=== PATIENT | female | born 1965 | race African-American/Black ===

== ENCOUNTER 2017-02-04 11:14 | Inpatient (IN) | payer MEDICAID ==
[~2017-02-04] VITALS: Ht 172.7 cm; Wt 129.5 kg
[~2017-02-04 11:14] MED LIST: ALBU18; ASPI-231 PO; GABA-339 PO; HYDR12.56 PO; LOR05T GT; METF-312 PO; METO-169; RABE20TA5 PO
[2017-02-04] MEDS ORDERED: SODIUM CHLORIDE 0.9% 1,000 ML IV ONE (11:27)
[2017-02-04] MEDS ORDERED: ALBUTEROL SULF 2.5 MG/0.5ML(0.5%) NEB SOLN HHN ONE (11:30)
[2017-02-04] MEDS ORDERED: IPRATROPIUM BROM 0.5 MG/2.5ML INH SOL HHN ONE (11:30)
[2017-02-04] MEDS ORDERED: methylPREDNISolone SOD SUCC 125 MG/2 ML VL IV ONE (11:30)
[2017-02-04 12:05] LABS: Basophils # (auto) 0.1 uL; Eosinophils # (auto) 0.4 uL; Lymphocytes # (auto) 1.7 uL; Monocytes # (auto) 0.5 uL
[2017-02-04 12:16] LABS: Eosinophils % (auto) 7.7 % (0.0-7.0); Hematocrit 43.3 % (36.0-46.0); Lymphocytes % (auto) 29.5 % (10.0-50.0); Mean Corpuscular Hemoglobin 28.3 pg (28.0-32.0); Mean Corpuscular Hgb Conc. 32.3 g/dL (32.0-36.0); Mean Corpuscular Volume 87.5 fL (80.0-100.0); Mean Platelet Volume 9.5 fL (7.4-10.4); Monocytes % (auto) 8.6 % (0.0-12.0); Neutrophils % (auto) 53.2 % (37.0-80.0); Platelet Count (auto) 335 10^3/uL (140-450); Red Cell Distribution Width 16.3 % (11.6-16.0); White Blood Cell 5.7 10^3/uL (4.4-10.8)
[2017-02-04 12:33] LABS: B-Type Natriuretic Peptide 11.07 pg/mL (0-100)
[2017-02-04 12:34] LABS: Albumin 3.1 g/dL (3.4-5.0); Alkaline Phosphatase 100 U/L (45-117); Anion Gap 9 (5-15); Aspartate Aminotransferase 8 U/L (15-37); BUN/Creatinine Ratio 15.1; Bilirubin, Total 0.1 mg/dL (0.2-1.0); Blood Urea Nitrogen 13 mg/dL (7-18); Calcium 8.5 mg/dL (8.5-10.1); Carbon Dioxide 29 mmol/L (21-32); Chloride 102 mmol/L (98-107); GFR African American 89 mL/min; GFR Non-African American 74 mL/min; Glucose 155 mg/dL (74-106); Magnesium 2.1 mg/dL (1.6-2.6); Potassium 4.2 mmol/L (3.5-5.1); Sodium 140 mmol/L (136-145); Temperature: 23.9 C (20.0-25.0); Total Protein 6.9 g/dL (6.4-8.2)
[2017-02-04] MEDS ORDERED: GLIMPERIDE (13:45)
[2017-02-04] MEDS ORDERED: PRAV20TA3 PO (13:45)
[2017-02-04] MEDS ORDERED: PRO625LQ PO (13:45)
[2017-02-04] MEDS ORDERED: ENAL5TAB92 PO (13:45)
[2017-02-04] MEDS ORDERED: OMEP20CA5 PO (13:45)
[2017-02-04] MEDS ORDERED: TOPI50TA53 PO (13:45)
[2017-02-04] MEDS ORDERED: CETI10TA93 PO (13:45)
[2017-02-04] MEDS ORDERED: BUPR300T28 PO (13:45)
[2017-02-04] MEDS ORDERED: PAR20T PO (13:45)
[2017-02-04] MEDS ORDERED: DIV250ER PO (13:45)
[2017-02-04] MEDS ORDERED: MIRT30TA3 PO (13:45)
[2017-02-04] MEDS ORDERED: TEMA30CA PO (13:45)
[2017-02-04 14:22] LABS: Urine Bilirubin Negative (Negative); Urine Blood Negative /uL (Negative); Urine Color Yellow (Yellow); Urine Glucose Normal (Normal); Urine Ketone Negative (Negative); Urine Nitrite Negative (Negative); Urine RBC <1 /hpf (0 - 4); Urine Squamous Epithelial Cell FEW /hpf (<5); Urine Urobilinogen Normal (Negative)
[2017-02-04] MEDS ORDERED: cefTRIAXone 1GM/50ML D5W 50 ML IV ONE (15:00)
[2017-02-04] MEDS ORDERED: TEMAZEPAM 15 MG CAP PO PRN (15:15)
[2017-02-04] MEDS ORDERED: LORazepam 2MG/ML-1ML VIAL IV PRN (15:15)
[2017-02-04] MEDS ORDERED: ONDANSETRON HCL 4 MG/2 ML VIAL IV PRN (15:15)
[2017-02-04] MEDS ORDERED: NITROGLYCERIN 0.4 MG SL TAB SL PRN (15:15)
[2017-02-04] MEDS ORDERED: MORPHINE SULF INJ 2 MG/ML SYRINGE 1ML IV PRN ×2 (15:15)
[2017-02-04] MEDS ORDERED: DEXTROSE (50%) 50ML SYRG IV PRN (15:15)
[2017-02-04] MEDS ORDERED: PROMETHAZINE HCL 6.25 MG/5 ML ORAL SYRUP PO PRN (15:15)
[2017-02-04] MEDS ORDERED: ERGOCALCIFEROL 50,000 UNIT(1.25MG) CAP PO SCH (15:15)
[2017-02-04] MEDS ORDERED: PATIENTS OWN MEDICATION PO PRN ×2 (15:15)
[2017-02-04] MEDS ORDERED: ACETAMINOPHEN 325 MG TAB PO PRN (15:15)
[2017-02-04] MEDS ORDERED: DOCUSATE SOD 100 MG CAP PO PRN (15:15)
[2017-02-04 15:28] VITALS: BP 120/76
[2017-02-04] MEDS ORDERED: ASPirin-EC 81 mg tab PO ONE (15:30)
[2017-02-04] MEDS ORDERED: ENALAPRIL MALEATE 2.5 MG TAB PO ONE (15:30)
[2017-02-04] MEDS ORDERED: LORATADINE 10 MG TAB PO PRN (15:30)
[2017-02-04] MEDS: ACCU-CHEK COMFORT CURVE STRIP VI SCH ×2 (17:00→22:11)
[2017-02-04] MEDS: InsuLIN REG 1unit/0.01ml Soln (100units/ml) SC SCH ×2 (17:00→22:11)
[2017-02-04] MEDS ORDERED: HYDR-531 PO (18:47)
[2017-02-04] MEDS: ALBUTEROL SULF 2.5 MG/0.5ML(0.5%) NEB SOLN NEB SCH ×2 (19:24→22:05)
[2017-02-04] MEDS: IPRATROPIUM BROM 0.5 MG/2.5ML INH SOL NEB SCH ×2 (19:24→22:04)
[2017-02-04] MEDS: HYDROcodone-ACET 5/325MG TAB PO PRN (20:26)
[2017-02-04] MEDS: buPROPion HCL 75 MG TAB PO SCH (20:26)
[2017-02-04 21:03] VITALS: BP 140/80
[2017-02-04] MEDS ORDERED: FAMOTIDINE 20 MG TAB PO SCH (22:00)
[2017-02-04] MEDS: PRAVASTATIN SODIUM 20 MG TAB PO SCH (22:10)
[2017-02-04] MEDS: TOPIRAMATE 25 MG TAB PO SCH (22:10)
[2017-02-04] MEDS: SODIUM CHLOR 0.9% PF (SALINE LOCK) 10ML VIAL IV SCH (22:10)
[2017-02-04] MEDS: MIRTAZAPINE 30 MG TAB PO SCH (22:10)
[2017-02-05] MEDS: IPRATROPIUM BROM 0.5 MG/2.5ML INH SOL NEB SCH ×6 (02:00→22:31)
[2017-02-05] MEDS: ALBUTEROL SULF 2.5 MG/0.5ML(0.5%) NEB SOLN NEB SCH ×6 (02:00→22:31)
[2017-02-05] MEDS: HYDROcodone-ACET 5/325MG TAB PO PRN (04:34)
[2017-02-05 05:37] VITALS: BP 140/70
[2017-02-05] MEDS: SODIUM CHLOR 0.9% PF (SALINE LOCK) 10ML VIAL IV SCH ×3 (06:10→22:05)
[2017-02-05] MEDS: GLIMEPIRIDE 2 MG TAB PO SCH (06:10)
[2017-02-05] MEDS: buPROPion HCL 75 MG TAB PO SCH ×2 (06:11→17:20)
[2017-02-05] MEDS: InsuLIN REG 1unit/0.01ml Soln (100units/ml) SC SCH ×4 (06:11→22:06)
[2017-02-05] MEDS: ACCU-CHEK COMFORT CURVE STRIP VI SCH ×4 (06:11→22:06)
[2017-02-05 06:34] LABS: Basophils # (auto) 0 uL; Basophils % (auto) 0.2 % (0.0-2.0); Eosinophils # (auto) 0 uL; Hematocrit 44.2 % (36.0-46.0); Hemoglobin 14.1 g/dL (12.2-16.2); Lymphocytes # (auto) 1.4 uL; Lymphocytes % (auto) 13.1 % (10.0-50.0); Mean Corpuscular Hemoglobin 28.5 pg (28.0-32.0); Mean Corpuscular Volume 89.1 fL (80.0-100.0); Mean Platelet Volume 9.6 fL (7.4-10.4); Monocytes # (auto) 0.7 uL; Monocytes % (auto) 6.3 % (0.0-12.0); Neutrophils # (auto) 8.5 uL; Neutrophils % (auto) 80.4 % (37.0-80.0); Platelet Count (auto) 362 10^3/uL (140-450); Red Cell Distribution Width 16.3 % (11.6-16.0); White Blood Cell 10.6 10^3/uL (4.4-10.8)
[2017-02-05 06:59] LABS: Anion Gap 9 (5-15); Aspartate Aminotransferase 6 U/L (15-37); Blood Urea Nitrogen 15 mg/dL (7-18); Calcium 8.6 mg/dL (8.5-10.1); Carbon Dioxide 26 mmol/L (21-32); Chloride 107 mmol/L (98-107); GFR African American 104 mL/min; GFR Non-African American 86 mL/min; Glucose 150 mg/dL (74-106); Potassium 4.2 mmol/L (3.5-5.1); Sodium 142 mmol/L (136-145)
[2017-02-05 07:02] LABS: Alkaline Phosphatase 90 U/L (45-117); Bilirubin, Total < 0.1 mg/dL (0.2-1.0)
[2017-02-05 08:00] VITALS: BP 123/92
[2017-02-05 08:25] VITALS: BP 123/92
[2017-02-05] MEDS: TOPIRAMATE 25 MG TAB PO SCH (10:00)
[2017-02-05] MEDS: HCTZ 25 MG TAB PO SCH (10:00)
[2017-02-05] MEDS ORDERED: ENALAPRIL MALEATE 2.5 MG TAB PO SCH (10:00)
[2017-02-05 12:30] VITALS: BP 87/41
[2017-02-05] MEDS: cefTRIAXone 1GM/50ML D5W 50 ML IV SCH (13:43)
[2017-02-05] MEDS: MULTIPLE VITAMIN TAB PO SCH (13:44)
[2017-02-05] MEDS: PARoxetine 20 MG TAB PO SCH (13:44)
[2017-02-05] MEDS: ASPirin-EC 81 mg tab PO SCH (13:44)
[2017-02-05] MEDS: PANTOPRAZOLE 40 MG TAB PO SCH (13:44)
[2017-02-05] MEDS: methylPREDNISolone SOD SUCC 125 MG/2 ML VL IV SCH ×3 (13:45→22:06)
[2017-02-05] MEDS: HYDROcodone-ACET 10/325MG TAB PO PRN ×2 (13:48→20:34)
[2017-02-05 16:25] VITALS: BP 146/83
[2017-02-05] MEDS ORDERED: ERGO1CAP6 PO (20:41)
[2017-02-05] MEDS ORDERED: GLIM4TAB42 PO (20:42)
[2017-02-05 21:04] VITALS: BP 119/72
[2017-02-05] MEDS: MIRTAZAPINE 30 MG TAB PO SCH (22:05)
[2017-02-05] MEDS: PRAVASTATIN SODIUM 20 MG TAB PO SCH (22:05)
[2017-02-05] MEDS: TEMAZEPAM 15 MG CAP PO PRN (22:08)
[2017-02-06] VITALS (7 sets, daily range): BP systolic 87–130; BP diastolic 41–82
[2017-02-06] MEDS: IPRATROPIUM BROM 0.5 MG/2.5ML INH SOL NEB SCH ×6 (02:43→22:19)
[2017-02-06] MEDS: ALBUTEROL SULF 2.5 MG/0.5ML(0.5%) NEB SOLN NEB SCH ×6 (02:43→22:19)
[2017-02-06] MEDS: methylPREDNISolone SOD SUCC 125 MG/2 ML VL IV SCH ×4 (06:21→21:58)
[2017-02-06] MEDS: SODIUM CHLOR 0.9% PF (SALINE LOCK) 10ML VIAL IV SCH ×3 (06:21→21:57)
[2017-02-06] MEDS: ACCU-CHEK COMFORT CURVE STRIP VI SCH ×4 (06:21→21:58)
[2017-02-06] MEDS: buPROPion HCL 75 MG TAB PO SCH ×2 (06:21→17:47)
[2017-02-06] MEDS: GLIMEPIRIDE 2 MG TAB PO SCH (06:21)
[2017-02-06] MEDS: InsuLIN REG 1unit/0.01ml Soln (100units/ml) SC SCH ×4 (06:21→21:57)
[2017-02-06] MEDS: HYDROcodone-ACET 10/325MG TAB PO PRN ×3 (09:27→20:33)
[2017-02-06] MEDS: ASPirin-EC 81 mg tab PO SCH (09:27)
[2017-02-06] MEDS: PARoxetine 20 MG TAB PO SCH (09:28)
[2017-02-06] MEDS: HCTZ 25 MG TAB PO SCH (09:29)
[2017-02-06] MEDS: cefTRIAXone 1GM/50ML D5W 50 ML IV SCH (09:29)
[2017-02-06] MEDS: MULTIPLE VITAMIN TAB PO SCH (09:29)
[2017-02-06] MEDS: PANTOPRAZOLE 40 MG TAB PO SCH (09:29)
[2017-02-06] MEDS: MIRTAZAPINE 30 MG TAB PO SCH (21:57)
[2017-02-06] MEDS: PRAVASTATIN SODIUM 20 MG TAB PO SCH (21:57)
[2017-02-06] MEDS: TEMAZEPAM 15 MG CAP PO PRN (21:58)
[2017-02-07] MEDS: IPRATROPIUM BROM 0.5 MG/2.5ML INH SOL NEB SCH ×6 (02:16→22:17)
[2017-02-07] MEDS: ALBUTEROL SULF 2.5 MG/0.5ML(0.5%) NEB SOLN NEB SCH ×6 (02:16→22:17)
[2017-02-07 05:40] VITALS: BP 128/83
[2017-02-07 05:45] LABS: Basophils # (auto) 0.1 uL; Basophils % (auto) 0.6 % (0.0-2.0); Eosinophils # (auto) 0 uL; Hematocrit 42.3 % (36.0-46.0); Hemoglobin 13.6 g/dL (12.2-16.2); Lymphocytes # (auto) 1.3 uL; Lymphocytes % (auto) 10.3 % (10.0-50.0); Mean Corpuscular Hemoglobin 28.4 pg (28.0-32.0); Mean Corpuscular Hgb Conc. 32.2 g/dL (32.0-36.0); Mean Corpuscular Volume 88.2 fL (80.0-100.0); Mean Platelet Volume 9.7 fL (7.4-10.4); Monocytes # (auto) 0.3 uL; Monocytes % (auto) 2.7 % (0.0-12.0); Neutrophils % (auto) 86.4 % (37.0-80.0); Platelet Count (auto) 370 10^3/uL (140-450); Red Cell Distribution Width 16.5 % (11.6-16.0); SUSPECT VIEW TRANSMISSION; White Blood Cell 12.7 10^3/uL (4.4-10.8)
[2017-02-07 06:01] LABS: Albumin 2.9 g/dL (3.4-5.0); Calcium 8.5 mg/dL (8.5-10.1); Potassium 3.9 mmol/L (3.5-5.1)
[2017-02-07 06:04] LABS: Bilirubin, Total 0.1 mg/dL (0.2-1.0); Total Protein 6.8 g/dL (6.4-8.2)
[2017-02-07] MEDS: methylPREDNISolone SOD SUCC 125 MG/2 ML VL IV SCH ×3 (06:08→18:21)
[2017-02-07] MEDS: SODIUM CHLOR 0.9% PF (SALINE LOCK) 10ML VIAL IV SCH ×3 (06:08→21:46)
[2017-02-07] MEDS: InsuLIN REG 1unit/0.01ml Soln (100units/ml) SC SCH ×4 (06:09→21:58)
[2017-02-07] MEDS: ACCU-CHEK COMFORT CURVE STRIP VI SCH ×4 (06:09→21:47)
[2017-02-07] MEDS: buPROPion HCL 75 MG TAB PO SCH ×2 (06:09→18:21)
[2017-02-07] MEDS: GLIMEPIRIDE 2 MG TAB PO SCH (06:09)
[2017-02-07] MEDS: HYDROcodone-ACET 10/325MG TAB PO PRN ×4 (06:41→21:48)
[2017-02-07 09:00] VITALS: BP 128/75
[2017-02-07] MEDS: PARoxetine 20 MG TAB PO SCH (10:13)
[2017-02-07] MEDS: ASPirin-EC 81 mg tab PO SCH (10:14)
[2017-02-07] MEDS: PANTOPRAZOLE 40 MG TAB PO SCH (10:14)
[2017-02-07] MEDS: MULTIPLE VITAMIN TAB PO SCH (10:14)
[2017-02-07] MEDS: HCTZ 25 MG TAB PO SCH (10:15)
[2017-02-07 13:00] VITALS: BP 140/84
[2017-02-07 17:00] VITALS: BP 125/85
[2017-02-07 20:00] VITALS: BP 144/90
[2017-02-07] MEDS: MIRTAZAPINE 30 MG TAB PO SCH (21:47)
[2017-02-07] MEDS: PRAVASTATIN SODIUM 20 MG TAB PO SCH (21:47)
[2017-02-07] MEDS: TEMAZEPAM 15 MG CAP PO PRN (21:48)
[2017-02-07 22:34] VITALS: BP 144/90
[2017-02-08] MEDS: methylPREDNISolone SOD SUCC 125 MG/2 ML VL IV SCH ×4 (00:03→17:10)
[2017-02-08] MEDS: ALBUTEROL SULF 2.5 MG/0.5ML(0.5%) NEB SOLN NEB SCH ×5 (02:21→18:44)
[2017-02-08] MEDS: IPRATROPIUM BROM 0.5 MG/2.5ML INH SOL NEB SCH ×5 (02:21→18:44)
[2017-02-08 05:34] VITALS: BP 135/77
[2017-02-08] MEDS: SODIUM CHLOR 0.9% PF (SALINE LOCK) 10ML VIAL IV SCH ×3 (05:57→21:32)
[2017-02-08] MEDS: GLIMEPIRIDE 2 MG TAB PO SCH (05:57)
[2017-02-08] MEDS: buPROPion HCL 75 MG TAB PO SCH ×2 (05:57→17:23)
[2017-02-08] MEDS: ACCU-CHEK COMFORT CURVE STRIP VI SCH ×4 (05:58→21:32)
[2017-02-08] MEDS: InsuLIN REG 1unit/0.01ml Soln (100units/ml) SC SCH ×4 (05:58→21:32)
[2017-02-08 06:04] LABS: Basophils # (auto) 0 uL; Basophils % (auto) 0.1 % (0.0-2.0); Eosinophils # (auto) 0 uL; Hematocrit 43.7 % (36.0-46.0); Hemoglobin 13.9 g/dL (12.2-16.2); Lymphocytes # (auto) 1.1 uL; Lymphocytes % (auto) 9.4 % (10.0-50.0); Mean Corpuscular Hemoglobin 28.1 pg (28.0-32.0); Mean Corpuscular Hgb Conc. 31.9 g/dL (32.0-36.0); Mean Corpuscular Volume 88.3 fL (80.0-100.0); Mean Platelet Volume 9.7 fL (7.4-10.4); Monocytes # (auto) 0.5 uL; Monocytes % (auto) 4.5 % (0.0-12.0); Neutrophils # (auto) 10.2 uL; Platelet Count (auto) 376 10^3/uL (140-450); Red Cell Distribution Width 16.3 % (11.6-16.0); White Blood Cell 11.9 10^3/uL (4.4-10.8)
[2017-02-08 06:29] LABS: Albumin 2.9 g/dL (3.4-5.0); Bilirubin, Total 0.2 mg/dL (0.2-1.0); Calcium 8.6 mg/dL (8.5-10.1); Potassium 4.1 mmol/L (3.5-5.1); Total Protein 6.6 g/dL (6.4-8.2)
[2017-02-08 07:25] VITALS: BP 130/68
[2017-02-08] MEDS: PANTOPRAZOLE 40 MG TAB PO SCH (08:43)
[2017-02-08] MEDS: HYDROcodone-ACET 10/325MG TAB PO PRN ×2 (08:44→21:31)
[2017-02-08] MEDS: ASPirin-EC 81 mg tab PO SCH (08:45)
[2017-02-08] MEDS: PARoxetine 20 MG TAB PO SCH (08:45)
[2017-02-08] MEDS: MULTIPLE VITAMIN TAB PO SCH (08:45)
[2017-02-08] MEDS: HCTZ 25 MG TAB PO SCH (08:45)
[2017-02-08 10:54] VITALS: BP 144/75
[2017-02-08 16:05] VITALS: BP 138/80
[2017-02-08 21:16] VITALS: BP 150/82
[2017-02-08] MEDS: PRAVASTATIN SODIUM 20 MG TAB PO SCH (21:31)
[2017-02-08] MEDS: MIRTAZAPINE 30 MG TAB PO SCH (21:31)
[2017-02-09] MEDS: methylPREDNISolone SOD SUCC 125 MG/2 ML VL IV SCH ×3 (00:03→12:43)
[2017-02-09] MEDS: IPRATROPIUM BROM 0.5 MG/2.5ML INH SOL NEB SCH ×5 (00:26→13:28)
[2017-02-09] MEDS: ALBUTEROL SULF 2.5 MG/0.5ML(0.5%) NEB SOLN NEB SCH ×5 (00:26→13:28)
[2017-02-09 05:15] VITALS: BP 155/83
[2017-02-09] MEDS: GLIMEPIRIDE 2 MG TAB PO SCH (05:42)
[2017-02-09] MEDS: buPROPion HCL 75 MG TAB PO SCH (05:42)
[2017-02-09] MEDS: ACCU-CHEK COMFORT CURVE STRIP VI SCH ×2 (05:43→11:30)
[2017-02-09] MEDS: SODIUM CHLOR 0.9% PF (SALINE LOCK) 10ML VIAL IV SCH ×2 (05:43→14:00)
[2017-02-09] MEDS: HYDROcodone-ACET 10/325MG TAB PO PRN (05:43)
[2017-02-09] MEDS: InsuLIN REG 1unit/0.01ml Soln (100units/ml) SC SCH ×2 (05:44→11:30)
[2017-02-09 08:00] VITALS: BP 155/96
[2017-02-09 09:00] VITALS: BP 155/96
[2017-02-09] MEDS: PANTOPRAZOLE 40 MG TAB PO SCH (10:43)
[2017-02-09] MEDS: PARoxetine 20 MG TAB PO SCH (10:43)
[2017-02-09] MEDS: HCTZ 25 MG TAB PO SCH (10:43)
[2017-02-09] MEDS: ASPirin-EC 81 mg tab PO SCH (10:43)
[2017-02-09] MEDS: MULTIPLE VITAMIN TAB PO SCH (10:44)
[2017-02-09 11:05] LABS: Base Excess 4.6 mmol/L (-2.0-2.0); Blood 02Sat 91.4 % (96-100); Blood COHb 0.3 % (0.5-1.5); Blood MetHb 0.3 % (0.0-1.5); HCO3 28.3 mmol/L (22-26.0); HHb 8.5 % (0.0-5.0); MODE ROOM AIR; O2Hb 90.9 % (94.0-97.0); PCO2 39.3 mmHg (35.0-45.0); PCO2(T) 39.3 mmHg (35.0-45.0); PO2 61.6 mmHg (80.0-100.0); PO2(T) 61.6 mmHg (80.0-100.0); Room 0206T; Sample Type Arterial; pH 7.476 (7.350-7.450)
[2017-02-09 12:12] VITALS: BP 153/81
[2017-02-09] MEDS ORDERED: NOR5T PO (14:36)
[2017-02-09] MEDS ORDERED: PRE5T PO (14:36)
[2017-02-09 16:36] VITALS: BP 155/96
== END 2017-02-09 17:30 | disposition home or self-care (01) | DRG 140 ==
LOC: ER 11:16 → TELE 11:17 → TELE-E-ADS 17:37 → TELE-CENTR 19:17
PROVIDERS: ADMIT Internal Medicine; ATTEND Internal Medicine
PROC: 5A09557 Assistance with Respiratory Ventilation, Greater than 96 Consecutive Hours, Continuous Positive Airway Pressure (ICD-10-PCS; principal; 2017-02-04)
DX: J44.0 Chronic obstructive pulmonary disease with (acute) lower respiratory infection (principal); J96.00 Acute respiratory failure, unspecified whether with hypoxia or hypercapnia; E43 Unspecified severe protein-calorie malnutrition; E11.21 Type 2 diabetes mellitus with diabetic nephropathy; J45.901 Unspecified asthma with (acute) exacerbation; E11.40 Type 2 diabetes mellitus with diabetic neuropathy, unspecified; Z68.41 Body mass index [BMI] 40.0-44.9, adult; E11.65 Type 2 diabetes mellitus with hyperglycemia; J44.1 Chronic obstructive pulmonary disease with (acute) exacerbation; J20.9 Acute bronchitis, unspecified; I25.10 Atherosclerotic heart disease of native coronary artery without angina pectoris; N18.2 Chronic kidney disease, stage 2 (mild); E78.5 Hyperlipidemia, unspecified; I12.9 Hypertensive chronic kidney disease with stage 1 through stage 4 chronic kidney disease, or unspecified chronic kidney disease; E66.9 Obesity, unspecified; K21.9 Gastro-esophageal reflux disease without esophagitis; G40.909 Epilepsy, unspecified, not intractable, without status epilepticus; E11.22 Type 2 diabetes mellitus with diabetic chronic kidney disease; Z87.440 Personal history of urinary (tract) infections; I25.2 Old myocardial infarction; Z87.891 Personal history of nicotine dependence; Z90.710 Acquired absence of both cervix and uterus
CPT/HCPCS: 36415; 36600; 71010; 80053; 81001; 82805; 82962; 83036; 83735; 83880; 84484; 85025; 87070; 87205; 93005; 93306; 94640; 94644; 94660; 96361; 96365; 96375; J0696; J1815

== ENCOUNTER 2017-11-12 12:27 | Emergency (ER) | payer MEDICAID ==
[~2017-11-12] VITALS: Ht 172.7 cm; Wt 124.7 kg
[~2017-11-12 12:27] MED LIST changes: +BUPR300T28 PO; +CETI10TA93 PO; +DIV250ER PO; +ENAL5TAB92 PO; +ERGO1CAP6 PO; -GABA-339 PO; +GLIM4TAB42 PO; +HYDR-4683 PO; +HYDR-531 PO; -LOR05T GT; -METF-312 PO; +METF-370 PO; -METO-169; +MIRT30TA3 PO; +OMEP20CA74 PO; +PAR20T PO; +PRAV20TA3 PO; +PRE5T PO; +PRO625LQ PO; -RABE20TA5 PO; +TEMA30CA PO
[2017-11-12 12:56] VITALS: BP 142/85
[2017-11-12] MEDS ORDERED: IPRATROPIUM BROM 0.5 MG/2.5ML INH SOL NEB ONE (13:30)
[2017-11-12] MEDS ORDERED: methylPREDNISolone SOD SUCC 125 MG/2 ML VL IM ONE (13:30)
[2017-11-12] MEDS ORDERED: ALBUTEROL SULF 2.5 MG/0.5ML(0.5%) NEB SOLN NEB ONE (13:30)
== END 2017-11-12 15:15 | disposition home or self-care (01) ==
LOC: ER 12:27
DX: R09.89 Other specified symptoms and signs involving the circulatory and respiratory systems (principal); J45.909 Unspecified asthma, uncomplicated; I25.10 Atherosclerotic heart disease of native coronary artery without angina pectoris; J44.9 Chronic obstructive pulmonary disease, unspecified; E11.9 Type 2 diabetes mellitus without complications; K21.9 Gastro-esophageal reflux disease without esophagitis; E78.5 Hyperlipidemia, unspecified; I10 Essential (primary) hypertension; I25.2 Old myocardial infarction; E66.01 Morbid (severe) obesity due to excess calories; Z68.41 Body mass index [BMI] 40.0-44.9, adult; Z87.440 Personal history of urinary (tract) infections; Z90.710 Acquired absence of both cervix and uterus; Z87.891 Personal history of nicotine dependence
CPT/HCPCS: 71046; 94640; 96372; 99284; J2930

== ENCOUNTER 2019-01-05 00:06 | Emergency (ER) | payer MEDICAID ==
[~2019-01-05] VITALS: Ht 172.7 cm; Wt 133.4 kg
[~2019-01-05 00:06] MED LIST changes: +ENAL5TAB PO; -ENAL5TAB92 PO
[2019-01-05 00:27] VITALS: BP 116/84
[2019-01-05] MEDS ORDERED: IPRATROPIUM BROM 0.5 MG/2.5ML INH SOL NEB ONE (00:45)
[2019-01-05] MEDS ORDERED: ALBUTEROL SULF 2.5 MG/0.5ML(0.5%) NEB SOLN NEB ONE (00:45)
[2019-01-05] MEDS ORDERED: KETOROLAC TROMETH 60MG/2ML VIAL IM ONE (02:30)
== END 2019-01-05 03:24 | disposition home or self-care (01) ==
LOC: ER 00:11
DX: S83.92XA Sprain of unspecified site of left knee, initial encounter (principal); J45.901 Unspecified asthma with (acute) exacerbation; E11.9 Type 2 diabetes mellitus without complications; K21.9 Gastro-esophageal reflux disease without esophagitis; E78.5 Hyperlipidemia, unspecified; I10 Essential (primary) hypertension; I25.2 Old myocardial infarction; Z87.440 Personal history of urinary (tract) infections; Z90.710 Acquired absence of both cervix and uterus; Z87.891 Personal history of nicotine dependence; Z91.013 Allergy to seafood; Z79.82 Long term (current) use of aspirin; Z79.899 Other long term (current) drug therapy; X58.XXXA Exposure to other specified factors, initial encounter; Y93.89 Activity, other specified; Y92.89 Other specified places as the place of occurrence of the external cause; Y99.8 Other external cause status
CPT/HCPCS: 73562; 82962; 94640; 96372; 99283; J1885; J7611; J7644

== ENCOUNTER 2021-12-30 09:40 | Emergency (ER) | payer MEDICAID ==
[~2021-12-30] VITALS: Ht 172.7 cm; Wt 87.1 kg
[~2021-12-30 09:40] MED LIST changes: -ASPI-231 PO; +ASPI1TAB20 PO; -ENAL5TAB PO; +ENAL5TAB10 PO; -HYDR-4683 PO; +HYDR-4833 PO; +MIRT1TAB39 PO; -MIRT30TA3 PO
[2021-12-30 10:15] LABS: Basophils # (auto) 0.1 10 ^3/uL (0-0.2); Basophils % (auto) 1.1 % (0.0-2.0); Eosinophils # (auto) 0.2 10 ^3/uL (0-0.8); Eosinophils % (auto) 4.2 % (0.0-7.0); Hematocrit 41.3 % (36.0-46.0); Hemoglobin 13.4 g/dL (12.2-16.2); Lymphocytes # (auto) 2.1 10 ^3/uL (0.4-5.4); Lymphocytes % (auto) 44.9 % (10.0-50.0); Mean Corpuscular Hgb Conc. 32.4 g/dL (32.0-36.0); Mean Corpuscular Volume 86.5 fL (80.0-100.0); Monocytes # (auto) 0.4 10 ^3/uL (0-1.3); Monocytes % (auto) 9.1 % (0.0-12.0); Neutrophils # (auto) 1.9 10 ^3/uL (1.6-8.6); Neutrophils % (auto) 40.7 % (37.0-80.0); Nucleated Red Blood Cells % 0.2 %; Red Blood Cells 4.77 10^6/uL (4.0-5.20); Red Cell Distribution Width 13.5 % (11.8-14.3); White Blood Cell 4.7 10^3/uL (4.4-10.8)
[2021-12-30 10:26] LABS: Albumin 3.2 g/dL (3.4-5.0); Calcium 8.7 mg/dL (8.5-10.1); Potassium 4.2 mmol/L (3.5-5.1)
[2021-12-30 10:30] LABS: BUN/Creatinine Ratio 8.8; Bilirubin, Total 0.3 mg/dL (0.2-1.0); Total Protein 6.9 g/dL (6.4-8.2)
[2021-12-30 13:39] LABS: Urine Bacteria NONE SEEN /hpf (None Seen); Urine Blood Negative /uL (Negative); Urine Specific Gravity 1.015 (1.001-1.035); Urine WBC 1 /hpf (0 - 5)
[2021-12-30] MEDS ORDERED: SODIUM CHLORIDE 0.9% 1,000 ML IV ONE (15:15)
[2021-12-30] MEDS ORDERED: KETOROLAC TROMETH 30 MG/ML 1ML VIAL IV ONE (15:45)
[2021-12-30] MEDS ORDERED: METOCLOPRAMIDE HCL 5MG/ml INJ 2ml VIAL IV ONE (15:45)
[2021-12-30] MEDS ORDERED: ALBUTEROL SULF 2.5 MG/0.5ML(0.5%) NEB SOLN NEB ONE (17:00)
[2021-12-30] MEDS ORDERED: IPRATROPIUM BROM 0.5 MG/2.5ML INH SOL NEB ONE (17:00)
[2021-12-30 17:11] LABS: INR 1.01 (0.9-1.15); Partial Thromboplastin Time 27.1 sec (23.6-33.0)
[2021-12-30 18:21] VITALS: BP 132/74
== END 2021-12-30 18:21 | disposition home or self-care (01) ==
LOC: ER 09:40
DX: R07.89 Other chest pain (principal); E11.65 Type 2 diabetes mellitus with hyperglycemia; E44.1 Mild protein-calorie malnutrition; R94.31 Abnormal electrocardiogram [ECG] [EKG]; I25.2 Old myocardial infarction; J44.9 Chronic obstructive pulmonary disease, unspecified; K21.9 Gastro-esophageal reflux disease without esophagitis; E78.5 Hyperlipidemia, unspecified; Z90.710 Acquired absence of both cervix and uterus; Z68.29 Body mass index [BMI] 29.0-29.9, adult; Z87.891 Personal history of nicotine dependence; Z91.013 Allergy to seafood
CPT/HCPCS: 36415; 71046; 80053; 81001; 83735; 83880; 84443; 84484; 85025; 85379; 85610; 85730; 93005; 94640; 96361; 96374; 96375; 99285; J1885; J2765; J7030; J7644